=== PATIENT | female | born 1995 | race Caucasian/White ===

== ENCOUNTER 2018-06-05 05:54 | Inpatient (IN) ==
[~2018-06-05 05:54] MED LIST: Famotidine 20 MG/2 ML VIAL IVP PRN; Metoclopramide 10 MG/2 ML VIAL IVP PRN; Naloxone 0.4 MG/ML INJ IVP PRN; Ringers Solution, Lactated 1,000 ML IVC ONE; Ringers Solution, Lactated 1,000 ML IVC SCH; Ringers Solution, Lactated 1,000 ML ONE
[2018-06-05 06:01] LABS: Basophils % 0.2 %; Eosinophils # 0.1 K/mcL (0.0-0.6); Eosinophils % 0.5 %; Hematocrit 36.3 % (35.3-44.9); Hemoglobin 12.6 g/dL (11.5-15.4); Immature Granulocytes % 0.5 % (0-4); Lymphocytes # 3.3 K/mcL (0.6-4.6); Lymphocytes % 22.7 %; Mean Corpuscular HGB Conc 34.7 g/dL (31.6-35.5); Mean Corpuscular Hemoglobin 29.5 pg (28.0-33.3); Mean Platelet Volume 10.4 fL (9.4-12.4); Monocytes # 0.9 K/mcL (0.0-1.3); Monocytes % 5.9 %; Neutrophils # 10.3 K/mcL (1.6-8.9); Platelet Count 233 K/mcL (140-400); Red Blood Count 4.27 M/mcL (3.82-4.97); Red Cell Distribution Width 13.6 % (11.5-14.5); Segmented Neutrophils % 70.2 %
[2018-06-05 06:07] LABS: Amphetamine Screen,Urine Negative ng/mL (Cutoff=1000); Barbiturate Screen,Urine Negative ng/mL (Cutoff=200)
[2018-06-05 06:08] LABS: Benzodiazepines Screen,Urine Negative ng/mL (Cutoff=300); Cannabinoid Screen,Urine Negative ng/mL (Cutoff = 50); Cocaine Screen,Urine Negative ng/mL (Cutoff= 300); Opiate Screen,Urine Negative ng/mL (Cutoff=300); Phencyclidine Screen,Urine Negative ng/mL (Cutoff=25)
[2018-06-05] MEDS ORDERED: ceFAZolin sodium 3,000 MG in 0.9 % Sodium Chloride 100 ML IVPB ONE (06:17)
[2018-06-05] MEDS ORDERED: EPHEDrine 50 MG/ML VIAL ONE (06:31)
[2018-06-05] MEDS ORDERED: *HR* Oxytocin 10 UNIT/ML VIAL IM ONE (06:32)
[2018-06-05] MEDS ORDERED: Ringers Solution, Lactated 1,000 ML ONE ×2 (06:32→07:47)
--- NOTE | 2018-06-05 06:32 | Anesthesia Evaluation PreOp ---
Date of Encounter: 06/05/18 Time of Encounter: 06:30 - Past History Planned Operation: Repeat Cardiac History: Denies any Significant Hx Pulmonary History: Asthma PLATFORM LOADER History: Denies Any Significant HX Other Medical History: Other (Morbid Obesity) Anesthesia History: No Prior Anesthetic Complications : Yes (38 weeks) Alcohol Use: none Drug use: none Medications and Allergies Albuterol Sulfate [Albuterol Inhaler] 2 puff IN PRN PRN 08/07/16 [History] Vit Calc,Iron,Folic [ Vitamins] 1 tab PO DAILY 08/07/16 [ History] 3 Allergy/AdvReac Type Severity Reaction Status Date / Time morphine Allergy Drowsy Verified 05/14/18 00:26 cdex Allergy Hives Uncoded 10/30/16 15:10 - Meds/Allergy Pre-op Review Medications Reviewed: Yes Allergies Reviewed: Yes Anesthesia Results - Labs 06/05/18 05:45 Anesthesia Exam O2 Sat Height 1.8 m Height 1.8 m Weight 174.4 kg Weight 174.4 kg Height: 5'11 Weight: 384 lbs NPO (# of Hours): MN Pain Scale: 0 - HEENT Pupil (Motor): Pupils equal, EOMI Mallampati: III Teeth: Normal Oral Opening: Less than or equal to 3 - PLATFORM LOADER LOC: Oriented PLATFORM LOADER Motor: Normal RUE, Normal LUE, Normal RLE, Normal LLE, Normal Face PLATFORM LOADER Sensory: Normal: RUE, LUE, RLE, LLE, Face - Cardiac Rhythm: Regular Murmur: None JVD: No Carotid Bruit: No - Pulmonary Breath Sounds: bilateral Clear Respiratory Effort: Symmetrical Anesthesia Assess/Plan ASA Score: 3 (Morbid Obesity ) Modified [place] Scale for Level of Consciousness: Cooperative, oriented, and tranquil Anesthetic Plan: Regional Monitoring Plan: Standard Monitors Recovery Plan: PACU (Discussed SAB, possibly GA, agrees to proceed)
[2018-06-05] MEDS ORDERED: *HR* FentaNYL (PF) 100 MCG/2 ML VIAL ONE (06:34)
[2018-06-05] MEDS ORDERED: *HR* Morphine Sulfate/PF 10 MG/10 ML AMPUL ONE (06:35)
--- NOTE | 2018-06-05 06:35 | OB/GYN History & Physical ---
Date of Encounter: 06/05/18 Time of Encounter: 06:33 Assessment and Plan (1) 38 weeks gestation of Current visit: Yes Status: Acute Pt presents with rupture of membranes here for rpt . Will proceed with rpt . Consent obtained. (2) Rupture of membranes with clear amniotic fluid Current visit: Yes Status: Acute Plan repeat . History of Present Illness Chief complaint: H/o prior HPI: Ms. Krueger is a 22 year old female G2 1 female presents at 38 weeks and 2 days gestation with complaint of rupture membranes this morning. On arrival she reports irregular contractions no bleeding she reports good movement. She does have history of prior section here for repeat. Past Med Surg Social Fam HX - Past Medical History Source: patient, old records reviewed Medical history: asthma Psychiatric history: no psych history - Past Surgical History Surgical History: appendectomy, Additional surgical history: T&A, D&C - Social History Smoking Status: Never smoker Smokeless Tobacco Status: No Alcohol use: none Drug use: none - Family History Sister Age: 27 Living Status: Still Living Hx Family Cardiac Disorders: No Hx Family Respiratory Disorders: No Hx Family Cancer: No Hx Family GI Disorders: No Hx Family Genitourinary Disorders: No Hx Family Endocrine Disorder: No Hx Family Musculoskeletal Disorders: No Hx Family Neuromuscular Disorders: No Hx Family Neurologic Disorders: No Hx Family HEENT Disorders: No Hx Family Autoimmune Disorders: No Hx Family Reproductive Disorders: No Hx Family Psychosocial Disorders: No Hx Family Medical Disorders: No Obstetrical History - Pregnancies : 3 Medications and Allergies Albuterol Sulfate [Albuterol Inhaler] 2 puff IN PRN PRN 08/07/16 [History] Vit Calc,Iron,Folic [ Vitamins] 1 tab PO DAILY 08/07/16 [ History] 3 Allergy/AdvReac Type Severity Reaction Status Date / Time morphine Allergy Drowsy Verified 05/14/18 00:26 cdex Allergy Hives Uncoded 10/30/16 15:10 Exam - Constitutional Constitutional: well developed, well nourished - HEENT HEENT: EOMI, PERRL - Neck Neck exam: full ROM - Lungs Respiratory exam: CTAB - Cardiovascular Cardiovascular exam: RRR - Abdomen Abdomen: Present: gravid, non tender - Extremities Extremities exam: full ROM - Uterus Uterus exam: Present: enlarged Results Result Diagrams: 06/05/18 05:45 Abnormal lab results WBC 14.6 K/mcL (4.3-11.1) H 06/05/18 05:45 Neutrophils # 10.3 K/mcL (1.6-8.9) H 06/05/18 05:45 All other labs normal.
[2018-06-05] MEDS ORDERED: CeFAZolin Syr 3,000MG/30 ML 3,000 MG/30 ML SYRINGE IVPB ONE (07:00)
[2018-06-05] MEDS ORDERED: *HR* HYDROmorphone (PF) 1 MG/ML SYRINGE IVP PRN (08:06)
[2018-06-05] MEDS ORDERED: Ondansetron 4 MG/2 ML VIAL IVP ONE (08:06)
[2018-06-05] MEDS ORDERED: *HR* Nalbuphine 10 MG/ML AMPUL IV PRN (08:17)
--- NOTE | 2018-06-05 08:52 | OB/GYN Procedure Note ---
Section - Date of procedure: 06/05/18 Preop diagnosis: desires repeat , other (Rupture of membranes) Post-op diagnosis: same Procedure: section, repeat low transverse Surgeon: Tom Case Quantitated Blood Loss: 600 Was there an billing and accounting staff assistant present: No Anesthesia Type: Spinal section complications: none Disposition: L&D Recovery Room Specimens: Placenta, Cord blood - Infant (s) A Delivery Date: 06/05/18 Infant Delivery Time: 08:00 Presentation: vertex Gender: Male Viability: Viable at 1 minute: 9 at 5 minutes: 9 Specimens collected: cord blood Placenta: spontaneous Cord: 3 umbilical vessels - Narrative Narrative: Patient's 22-year-old female 38 weeks and 3 days gestation history of prior section presents after rupture membranes at 5 AM. She presents to labor and delivery with complaint of irregular contractions. She been offered and declined trial of labor after section. She is aware operative risks and signed appropriate consent. Description procedure: Patient was taken operating room where spinal anesthesia was administered. She was prepped draped in usual sterile fashion bladder was drained of clear urine with Pope catheter. Once ensuring adequate anesthesia scalpel was used to make a incision along the lower abdomen above the panus. This was taken down to the fascia with Bovie fascia was incised midline fascial incision was extended bilaterally. Rectus muscles divided midline peritoneum was entered bluntly. There is minimal scar tissue uterus was intact and normal in appearance. Bladder blade was placed and scalpel was used to make a transverse uterine incision. This was sharply taken down to the uterine cavity. was delivered from vertex presentation without difficulty. Cord was clamped and cut and infant was handed nurse personnel who were in attendance. This point uterus was delivered spontaneously and uterine cavity was massaged of all residual tissue. Uterus closed 0 Vicryl running lock stitch uterine wall was quite thick. Second imbricating layer was taken over the first obtain hemostasis. Again irrigation was performed hemostasis was ensured. Fascia was closed the Vicryl running manner. Closed the fascia again irrigations performed hemostasis was ensured skin edges reapproximated with 4-0 Vicryl. Nicole dressing was placed. All sponge and instruments counts are correct patient taken recovery in good condition.
[2018-06-05] MEDS ORDERED: Oxytocin 20 units/ LR 1000 mL 20 UNIT/1,000 ML BAG IVC ONE (09:42)
[2018-06-05] MEDS ORDERED: *HR* OxyCODONE/APAP 5/325 TABLET PO PRN (11:19)
[2018-06-05] MEDS ORDERED: Sennosides 8.6 MG TABLET PO PRN (11:19)
[2018-06-05] MEDS ORDERED: Oxytocin 20 units/ LR 1000 mL 20 UNIT/1,000 ML BAG IVC SCH (11:19)
[2018-06-05] MEDS ORDERED: Rho Immune Globulin 1,500 UNIT SYRINGE IM ONE (11:19)
[2018-06-05] MEDS ORDERED: Metoclopramide 10 MG/2 ML VIAL IVP PRN (11:19)
[2018-06-05] MEDS ORDERED: Ondansetron 4 MG/2 ML VIAL IVP PRN (11:19)
[2018-06-06] MEDS: Ibuprofen 600 MG TABLET PO PRN ×3 (04:30→19:59)
[2018-06-06 07:09] LABS: Basophils % 0.2 %; Eosinophils # 0.1 K/mcL (0.0-0.6); Eosinophils % 0.4 %; Hematocrit 34.3 % (35.3-44.9); Hemoglobin 11.7 g/dL (11.5-15.4); Immature Granulocytes % 0.4 % (0-4); Lymphocytes # 1.5 K/mcL (0.6-4.6); Lymphocytes % 11.1 %; Mean Corpuscular HGB Conc 34.1 g/dL (31.6-35.5); Mean Corpuscular Hemoglobin 29.1 pg (28.0-33.3); Mean Corpuscular Volume 85.3 fL (83.0-100.0); Mean Platelet Volume 10.7 fL (9.4-12.4); Monocytes # 1.1 K/mcL (0.0-1.3); Monocytes % 7.7 %; Neutrophils # 11.1 K/mcL (1.6-8.9); Platelet Count 196 K/mcL (140-400); Red Blood Count 4.02 M/mcL (3.82-4.97); Red Cell Distribution Width 13.6 % (11.5-14.5); Segmented Neutrophils % 80.2 %
[2018-06-06] MEDS: Prenatal Vit/FA 1 EACH TABLET PO SCH (07:25)
--- NOTE | 2018-06-06 09:21 | OB/GYN Progress Note ---
Date of Encounter: 06/06/18 Time of Encounter: 09:19 - Assessment and Plan (1) Status post repeat low transverse section Current Visit: Yes Status: Acute day 1 Continue routine care Abdominal binder when necessary Anticipate discharge home tomorrow (2) Breast feeding status of mother Current Visit: Yes Status: Acute consult Subjective - Subjective Principal diagnosis: s/p RLTCS Interval history: Feeling well. Out of bed without dizziness. Cramping minimal, using ibuprofen and Percocet. Breast-feeding every 2-3 hours. Some nipple soreness. Voiding without difficulty. Passing flatus, no BM yet. Tolerating regular diet. Patient reports: appetite normal, voiding normally, pain well controlled, ambulating normally : doing well, nursing well Objective - Vital Signs Latest vital signs: Vital Signs Temp Pulse Resp BP Pulse Ox 06/06/18 07:32 97.5 F L 91 16 92/61 100 06/06/18 04:00 97.9 F 105 16 113/82 95 06/06/18 00:30 98.3 F 89 18 104/61 98 06/05/18 20:00 97.8 F 86 16 94/60 96 06/05/18 14:15 97.5 F L 84 16 99/65 96 06/05/18 13:10 97.7 F 85 16 111/69 97 06/05/18 12:10 97.5 F L 82 16 112/69 97 06/05/18 11:40 97.5 F L 82 16 110/57 95 06/05/18 11:10 97.6 F 69 18 111/58 Intake and Output 06/05/18 06/06/18 06/06/18 23:59 07:59 15:59 Intake Total 120 / 120 500 / 500 Output Total 1400 / 1400 1400 / 1400 Balance -1280 / -1280 -900 / -900 Intake: Oral 120 / 120 500 / 500 Output: Urine 1000 / 1000 Catheter 1400 / 1400 400 / 400 Other: Weight 170.636 kg Patient Weight 06/06/18 23:59 Weight 170.636 kg - Exam Lungs: bilateral: normal Chest: Normal S1, Normal S2 Extremities: Present: normal Abdomen: Present: normal appearance, soft Incision: Present: normal, dry, dressed Uterus: Present: normal, firm Fundal Height: 0 (Midline) - Labs Labs: Laboratory Results - last 24 hr 06/05/18 06/06/18 11:19 06:39 WBC 13.8 H RBC 4.02 Hgb 11.7 Hct 34.3 L MCV 85.3 MCH 29.1 MCHC 34.1 RDW 13.6 Plt Count 196 MPV 10.7 Immature Gran % 0.4 Seg Neutrophils % 80.2 Lymphocytes % 11.1 Monocytes % 7.7 Eosinophils % 0.4 Basophils % 0.2 Neutrophils # 11.1 H Lymphocytes # 1.5 Monocytes # 1.1 Eosinophils # 0.1 Basophils # 0.0 POC Glucose 87
[2018-06-07] MEDS: Simethicone 80 MG TAB.CHEW PO PRN ×2 (03:33→09:36)
[2018-06-07 09:17] VITALS: BP 116/76
[2018-06-07] MEDS: Prenatal Vit/FA 1 EACH TABLET PO SCH (09:36)
[2018-06-07] MEDS: Ibuprofen 600 MG TABLET PO PRN (09:36)
--- NOTE | 2018-06-07 09:44 | Discharge Summary ---
Date of Encounter: 06/07/18 Time of Encounter: 09:44 - Discharge Diagnosis (1) Post-op pain Priority: Secondary Status: Chronic (2) Status post repeat low transverse section Priority: Primary Status: Resolved - Discharge Medications Prescriptions: OxyCODONE/APAP 5/325 [Percocet 5/325 MG] 1 each PO Q4HR PRN 7 Days #28 tablet PRN Reason: Moderate pain 4-6 Ibuprofen [Motrin] 600 mg PO Q6HR PRN 14 Days #60 tablet PRN Reason: Cramping Home Medications: Albuterol Sulfate [Albuterol Inhaler] 2 puff IN PRN PRN 08/07/16 [History] Vit Calc,Iron,Folic [ Vitamins] 1 tab PO DAILY 08/07/16 [ History] Ibuprofen [Motrin] 600 mg PO Q6HR PRN 14 Days #60 tablet 06/07/18 [Rx] OxyCODONE/APAP 5/325 [Percocet 5/325 MG] 1 each PO Q4HR PRN 7 Days #28 tablet [Rx] Allergies/Adverse Reactions: 3 Allergy/AdvReac Type Severity Reaction Status Date / Time morphine Allergy Drowsy Verified 05/14/18 00:26 cdex Allergy Hives Uncoded 10/30/16 15:10 Data Procedures and tests throughout hospitalization: Laboratory Tests 06/05/18 06/05/18 06/05/18 05:45 05:45 11:19 WBC 14.6 H RBC 4.27 Hgb 12.6 Hct 36.3 MCV 85.0 MCH 29.5 MCHC 34.7 RDW 13.6 Plt Count 233 MPV 10.4 Immature Gran % 0.5 Seg Neutrophils % 70.2 Lymphocytes % 22.7 Monocytes % 5.9 Eosinophils % 0.5 Basophils % 0.2 Neutrophils # 10.3 H Lymphocytes # 3.3 Monocytes # 0.9 Eosinophils # 0.1 Basophils # 0.0 POC Glucose 87 Urine Opiates Screen Negative Ur Barbiturates Screen Negative Ur Phencyclidine Scrn Negative Ur Amphetamines Screen Negative U Benzodiazepines Scrn Negative Urine Cocaine Screen Negative U Marijuana (THC) Screen Negative Ur Drug Screen Interp See Below 06/06/18 06:39 WBC 13.8 H RBC 4.02 Hgb 11.7 Hct 34.3 L MCV 85.3 MCH 29.1 MCHC 34.1 RDW 13.6 Plt Count 196 MPV 10.7 Immature Gran % 0.4 Seg Neutrophils % 80.2 Lymphocytes % 11.1 Monocytes % 7.7 Eosinophils % 0.4 Basophils % 0.2 Neutrophils # 11.1 H Lymphocytes # 1.5 Monocytes # 1.1 Eosinophils # 0.1 Basophils # 0.0 POC Glucose Urine Opiates Screen Ur Barbiturates Screen Ur Phencyclidine Scrn Ur Amphetamines Screen U Benzodiazepines Scrn Urine Cocaine Screen U Marijuana (THC) Screen Ur Drug Screen Interp Date of admission: 06/05/18 05:54 Primary care physician: PCP NONE - Patient Status Disposition: Home, Self-Care Condition: Good Functional capacity at discharge: independent ambulation Overall status at discharge: patient is progressing back to baseline - Discharge Instructions Follow Up With: NONE,PCP [Primary Care Provider] - Hospital Course GRADING CLERK Time Attestation: Total time spent providing and/or coordinating discharge services: Exam - Constitutional Vitals: Temp Pulse Resp BP Pulse Ox 97.8 F 87 18 116/76 100 06/07/18 07:30 06/07/18 07:30 06/07/18 07:30 06/07/18 07:30 06/06/18 20:00 General appearance IM: A&O X 3 - Respiratory Respiratory exam: Present: CTAB - Cardiovascular Cardiovascular exam IM: Present: RRR - GI/Abdominal GI/Abdominal exam IM: normal bowel sounds, soft Incision: normal, dry, intact - Uterine Tone: Firm Uterus Position: 2 Fingers Above Umbilicus - Extremities Exam Extremities exam IM: Present: full ROM - Neurological Exam Neurological exam: CN II-XII intact - VTE Documentation of Mechanical Device: Intermittent pneumatic compression device - Attending Attestation paxton el md facog
== END 2018-06-07 11:15 | disposition home or self-care (01) | DRG 540 ==
LOC: 1NENULAB → 1NENUOBS 11:10
PROVIDERS: ADMIT Obstetrics & Gynecology; ATTEND Obstetrics & Gynecology

== ENCOUNTER 2020-04-25 12:55 | Observation (INO) ==
[2020-04-25] MEDS ORDERED: Ringers Solution, Lactated 1,000 ML IVC ONE (12:58)
[2020-04-25] MEDS ORDERED: Ringers Solution, Lactated 1,000 ML IVC SCH (13:00)
[2020-04-25 14:22] LABS: Basophils % 0.2 %; Eosinophils % 0.3 %; Hematocrit 36.6 % (35.3-44.9); Hemoglobin 11.9 g/dL (11.5-15.4); Immature Granulocytes % 0.5 % (0-4); Lymphocytes # 1.9 K/mcL (0.6-4.6); Lymphocytes % 16.7 %; Mean Corpuscular HGB Conc 32.5 g/dL (31.6-35.5); Mean Corpuscular Hemoglobin 28.5 pg (28.0-33.3); Mean Corpuscular Volume 87.6 fL (83.0-100.0); Mean Platelet Volume 10.4 fL (9.4-12.4); Monocytes # 0.6 K/mcL (0.0-1.3); Monocytes % 5.2 %; Neutrophils # 8.8 K/mcL (1.6-8.9); Platelet Count 250 K/mcL (140-400); Red Blood Count 4.18 M/mcL (3.82-4.97); Red Cell Distribution Width 13.5 % (11.5-14.5); Segmented Neutrophils % 77.1 %; White Blood Count 11.4 K/mcL (4.3-11.1)
[2020-04-25 14:49] LABS: Bacteria,Urine Few per hpf (None-Few); Bilirubin,Urine Negative (Negative); Blood,Urine Moderate (Negative); Clarity,Urine Clear (Clear); Color,Urine Colorless (Yellow); Glucose,Urine (UA) Normal (Normal); Ketones,Urine Negative (Negative); Leukocyte Esterase,Urine Large (Negative); Nitrite,Urine Negative (Negative); PH,Urine 6.5 pH Units (5.0-8.0); Protein,Urine Negative (Neg-Trace); RBC,Urine 0-3 per hpf (0-3); Specific Gravity,Urine 1.005 (1.010-1.025); Squamous Epithelial Cell,Urine Few per hpf (None-Few); Urobilinogen,Urine Normal (Normal); WBC,Urine 30-50 per hpf (0-3)
== END 2020-04-25 15:29 | disposition home or self-care (01) ==
LOC: 1NENULAB
PROVIDERS: ADMIT Obstetrics & Gynecology; ATTEND Obstetrics & Gynecology

== ENCOUNTER → 2020-06-02 22:21 | Observation (INO) ==
[2020-06-02 21:09] LABS: Bilirubin,Urine Negative (Negative); Blood,Urine Negative (Negative); Clarity,Urine Clear (Clear); Color,Urine Light-Yellow (Yellow); Glucose,Urine (UA) Normal (Normal); Ketones,Urine Negative (Negative); Leukocyte Esterase,Urine Negative (Negative); Nitrite,Urine Negative (Negative); Protein,Urine Negative (Neg-Trace); Specific Gravity,Urine 1.014 (1.010-1.025); Urobilinogen,Urine Normal (Normal)
== END | disposition home or self-care (01) ==
LOC: 1NENULAB
PROVIDERS: ADMIT Obstetrics & Gynecology; ATTEND Obstetrics & Gynecology